=== PATIENT | male | born 1980 | race Caucasian/White ===

== ENCOUNTER 2018-09-04 19:06 | Emergency (ER) | payer OTHER ==
[~2018-09-04] VITALS: Ht 180.3 cm; Wt 93.2 kg
[2018-09-04] MEDS ORDERED: AUD NEB (20:05)
[2018-09-04] MEDS ORDERED: ALBU8HFA IH (20:05)
[2018-09-04 20:56] VITALS: BP 136/56
[2018-09-04] MEDS ORDERED: ALBUTEROL SULFATE 5 MG/ML 20 ML NEB SOLN [BULK] NEB ONE (21:30)
[2018-09-04] MEDS ORDERED: IPRATROPIUM BROMIDE 0.5 MG/2.5 ML NEB SOLUTION NEB ONE (21:30)
== END 2018-09-04 22:14 | disposition left against medical advice (07) ==
LOC: EMS 19:08
DX: J40 Bronchitis, not specified as acute or chronic (principal); J18.9 Pneumonia, unspecified organism; Z98.890 Other specified postprocedural states; Z79.899 Other long term (current) drug therapy

== ENCOUNTER 2018-10-05 18:10 | Emergency (ER) | payer OTHER ==
[~2018-10-05] VITALS: Ht 175.3 cm; Wt 104.5 kg
[~2018-10-05 18:10] MED LIST: ALBU8HFA IH; AUD NEB
[2018-10-05] MEDS ORDERED: POVIDONE-IODINE 10% 15 ML SOLUTION UD TP ONE (19:00)
[2018-10-05] MEDS ORDERED: IBUPROFEN 800 MG TABLET PO ONE (19:00)
[2018-10-05] MEDS ORDERED: LIDOCAINE 1% 10 ML VIAL INJ ONE (19:00)
[2018-10-05] MEDS ORDERED: BACITRACIN 0.9 GM PACKET OINTMENT TP ONE (19:00)
[2018-10-05 20:19] VITALS: BP 135/77
== END 2018-10-05 20:24 | disposition home or self-care (01) ==
LOC: EMS 18:12
DX: S61.411A Laceration without foreign body of right hand, initial encounter (principal); J45.909 Unspecified asthma, uncomplicated; W45.8XXA Other foreign body or object entering through skin, initial encounter; Y93.89 Activity, other specified; Y92.89 Other specified places as the place of occurrence of the external cause; Y99.8 Other external cause status
CPT/HCPCS: 12001; 99283; J3490